=== PATIENT | female | born 1985 | race Caucasian/White ===

== ENCOUNTER 2016-09-07 14:25 | Emergency (ER) | payer OTHER | END 2016-09-07 15:00 | disposition home or self-care (01) | LOC: ER 14:25 | DX: B86 Scabies (principal) ==

== ENCOUNTER 2016-10-09 07:45 | Emergency (ER) | payer OTHER | END 2016-10-09 08:17 | disposition home or self-care (01) | LOC: ER 07:45 | DX: J03.90 Acute tonsillitis, unspecified (principal); R11.2 Nausea with vomiting, unspecified; Z90.49 Acquired absence of other specified parts of digestive tract | CPT/HCPCS: 87651; 96372; J1100 ==